=== PATIENT | male | born 1975 | race Caucasian/White ===

== ENCOUNTER 2019-11-04 07:00 | Outpatient (RCR) | payer OTHER, SELFPAY ==
--- NOTE | 2019-09-27 09:01 | PTOPEVAL ---
Addendum entered by Romana Santos, PT 09/27/19 09:30: orders: Dr. Mónica Steele--for diagnosis of chronic R side low back pain, without sciatica Dr. Noé Burgess III- for diagnosis of L and R hip impingement and OA primary care physician: Dr. Earl Rasheed Original Note: PHYSICAL THERAPY EVALUATION AND PLAN OF CARE 09-27-2019 The PT evaluation was completed today and plan of treatment is scheduled for 2x/week for 5 weeks. Plan includes land and aquatic exercises--for the buoyancy effects of the water to ease movement and strengthening. Thank you for referring Reymundo to [facility]. Please review, sign, date and return this plan of care TRICIA. I agree with and certify that the following plan of care is medically necessary. Referring Physician Date Attending Provider: Dr. Earl Rasheed--orders for back pain Dr. Mónica Steele--orders for R and L hip impingement and OA *PT Outpatient Evaluation Start: 09/27/19 07:37 Assessment Status Assessment Status Evaluation Outpatient Past Medical History Neurological History Hx Neurological Disorders No Significant History Cardiovascular History Hx Cardiac Disorders No Significant History Respiratory History Hx Asthma Yes: as child, no issues now Gastrointestinal History Hx Irritable Bowel Yes Hx Other Gastrointestinal Disorders Yes: frequent urination due to nerve impingement Genitourinary History Hx Genitourinary Disorders No Significant History Musculoskeletal History Hx Back Pain Yes: B hip and low back; L sh adhesive capsulitis,R sh pain Hx Other Musculoskeletal Disorders Yes: cervical pain, C 5-6 impingement;B knee pain Hematological History Hx Hematological Disorders No Significant History Endocrine History Hx Endocrine Disorders No Significant History HEENT History Hx HEENT Disorders No Significant History Other History Hx Other Surgeries Yes: inguinal hernia repair/ mesh;appendectomy; Evaluation Information Problem Diagnosis R and L hip impingement and OA , LBP Onset 2015 Subjective Information chronic since 2015- injury, Query Text:As Reported By Patient/ herniated disc L 4-5- partial Family discectomy; pain since 2016, increases at time with activity; previous PT for back- electrical stim helped, exercises did help; not for hips; Diagnostic Tests X-Rays For This Problem Yes: hips;lumbar- nothing impinging too severe-OA Previous Treatments Previous Treatments For This Problem last PT 2018 in [place]; then
--- NOTE | 2019-10-21 08:59 | PCPTNOTE ---
pt called and canceled today's treatment due to being ill.
--- NOTE | 2019-11-04 07:49 | PTOPEVAL ---
PHYSICAL THERAPY DISCHARGE SUMMARY 11-04-2019 Reymundo has received 6 Physical Therapy sessions, from September 27 to today. His treatment included land and aquatic exercises. Compared to the initial evaluation: pain rating is about the same; increase in hip and trunk strength; self assessment functional score increased 4%; reported tolerances with driving, standing, walking and sleeping are the same; increase in B hamstring flexibility; supine hip IR and ER increase his hip pain B, and hip flexion does not increase pain; B UE lifting is 15#. Reymundo has a good understanding of managing his pain with activity modification, positional changes, rest and stretching. He is independent with his home exercises on land and in the water--he plans to obtain a membership to a fitness center with a pool. He agrees to discharge from PT at this time, with continuing to do his home exercises. Thank you for referring Mr. Nayak to [facility]. Please review, sign, date and return this discharge TRICIA. I agree with and certify that the following plan of care is medically necessary. Referring Physician Date Attending Provider: orders per: Dr. Becca Steele for diagnosis of chronic R side low back pain Dr. Noé Burgess III for diagnosis of L and R hip impingement and OA Primary care physician--Dr. Chandrakant Rasheed *PT Outpatient Discharge Document 11/04/19 07:00 RUBEN (Rec: 11/04/19 07:43 RUBEN [email or web address]) Subjective Information Reymundo reports: feels like Query Text:As Reported By Patient/ aquatic exercises help; going Family to get a membership to fitness center with pool; self assessment with Oswestry is 58% limitation; agrees to discharge from PT; Pain Assessment Timing of Pain Assessment Timing of Pain Assessment Assessment Pain Scale Pain Scale Used Numeric (1 - 10) Self Report Pain Assessment Bilateral Back Reported Pain Level 3 Pain Description Sharp Radicular Pain Location low back R into R and L hip joints middle of hip joint ; no pain past hips Pain Frequency Chronic Current Pain Intensity 3 Lowest Pain Intensity 3 Greatest Pain Intensity 8 Pain Level Goal 0 Other Pain Aggravating Factors tolerances:driving 45 min; stand 5-10 min;sleep 6hr at time;walk 20-30min Other Alleviating Interventions taking extra strength tylenol ~ 1-3x/week, no other pain meds; Additional Pain Comments incr pain in/out bed & car- looking to get different car with higher seat; Pain Score Pain Score 3: Self Report Cervical and Lumbar ROM Lumbar ROM Lumbar Comments standing trunk flexion- hands
== END 2019-11-04 08:31 | disposition home or self-care (01) ==
LOC: ANHPT 07:00
PROVIDERS: PCP Family Medicine
DX: M16.0 Bilateral primary osteoarthritis of hip (principal); M25.852 Other specified joint disorders, left hip; M25.851 Other specified joint disorders, right hip
CPT/HCPCS: 97014; 97022; 97110; 97113; 97161; G0283

== ENCOUNTER 2020-05-04 12:01 | Emergency (ER) | payer OTHER, SELFPAY ==
--- NOTE | ~2020-05-04 | XR_ITS ---
EXAMINATION: XR toe 5th RT min 2V DATE: 05/04/2020 12:24 INDICATION: Right fifth toe injury and pain. TECHNIQUE: 3 views of right fifth toe were obtained. COMPARISON: None. FINDINGS: There is an oblique fracture of neck of fifth proximal phalanx. The distal fracture fragmen t demonstrates impaction, 1 mm plantar and lateral displacement, and 18 degrees lateral angulation. J oint spaces are normal. IMPRESSION: 1. Oblique fracture of neck of fifth proximal phalanx. Reviewed, dictated and finalized at location A.
--- NOTE | 2020-05-04 12:04 | ED.GENADULT ---
HPI - General Adult General Chief complaint: Extremity Injury, Lower Stated complaint: right pinky toe injured Time Seen by Provider: 05/04/20 12:14 Source: patient Mode of arrival: ambulatory Limitations: no limitations History of Present Illness HPI narrative: 44-year-old male patient presents to the [facility] with complaints of right pinky toe pain. Patient states that he hit it on a door frame last night before bed. Patient states he has been icing it and taking ibuprofen for the pain but this morning noticed that he started having some bruising and thought that the pinky toe looked a little deformed and wanted to come in and check it out. Patient states he has able to walk on it but does have pain when doing so. Related Data Home Medications Medication Instructions Recorded Confirmed No Home Medications 05/04/20 05/04/20 Allergies Allergy/AdvReac Type Severity Reaction Status Date / Time No Known Allergies Allergy Verified 05/04/20 12:15 Review of Systems Review of Systems: Narrative: CONSTITUTIONAL: Denies fever, chills, or sweats. EYES: Denies visual changes, redness, or discharge. ENT: Denies rhinorrhea, congestion, sore throat, or otalgia. CARDIOVASCULAR: Denies chest pain, palpitations, or edema. RESPIRATORY: Denies cough or dyspnea. GASTROINTESTINAL: Denies abdominal pain, nausea, vomiting, or diarrhea. GENITOURINARY: Denies dysuria or hematuria. SKIN: Denies rash or itching. MUSCULOSKELETAL: Denies back pain, joint pain, or myalgia. Positive right pinky toe pain NEUROLOGIC: Denies headache, numbness, or weakness. PSYCHIATRIC: Denies anxiety or depression. PMFSH Comments At the time of my signature I agree with nursing past medical history, surgical, social, and family history. There is no relevant family history pertinent to the presenting complaint. Exam Narrative: Exam Narrative: GENERAL: Well-appearing, well-nourished, and in no acute distress. HEAD: Normocephalic, atraumatic. EYES: PERRLA and EOMI. ENT: Nares clear, no rhinorrhea or epistaxis. Mucous membranes moist. NECK: Supple. No lymphadenopathy CHEST: Clear to auscultation. No respiratory distress. HEART: Regular rate and rhythm. No murmur heard. Normal peripheral pulses. ABDOMEN: Soft, nontender, nondistended, normal active bowel sounds. EXTREMITIES: Patient able to bear weight and ambulate with pain to right pinky toe. No surface trauma, there is ecchymosis noted over the fourth and fifth metatarsals, no erythema, lesions, ulcers or break in skin integrity. The R foot is without obvious asymmetry or deformity when compared to the L foot. No bony step-off, tender to palpation over the toes, no tenderness midfoot or hindfoot or sole. Normal plantar/dorsiflexion, inversion/eversion. Distal motor and neurovascular status are intact SKIN: Warm, dry, no rash. NEURO: No focal deficits. Alert and oriented x3. Course Reevaluation(s) Reevaluation #1: Reevaluated patient after his x-ray resulted. Discussed with patient that x-ray does show that he has a fracture of his pinky toe. Discussed with patient that we will go ahead and tylor tape the toe, provide him in a postop shoe for comfort and I will refer him to the orthopedic surgeon on-call today. Discussed with patient that he can needs to elevate it, ice it take Tylenol and ibuprofen as needed for pain and follow-up with Ortho as needed. Patient verbalized understanding denies any other questions or concerns at this time. Date: 05/04/20 Time: 12:40 Vital Signs Vital signs: Vital Signs Temperature 36.7 C 05/04/20 12:07 Pulse Rate 82 05/04/20 12:07 Respiratory Rate 18 05/04/20 12:07 Blood Pressure 121/77 05/04/20 12:07 Pulse Oximetry 99 05/04/20 12:07 Temperature 36.7 C 05/04/20 12:07 Pulse Rate 82 05/04/20 12:07 Respiratory Rate 18 05/04/20 12:07 Blood Pressure 121/77 05/04/20 12:07 Pulse Oximetry 99 05/04/20 12:07 Vital signs reviewed. Medical [facility]
[2020-05-04 12:07] VITALS: BP 121/77; PULSE 82; RESP 18; TEMP 36.7; O2SAT 99
== END 2020-05-04 12:50 | disposition home or self-care (01) ==
PROVIDERS: Emergency Provider Nurse Practitioner Family; PCP Family Medicine
DX: S92.511A Displaced fracture of proximal phalanx of right lesser toe(s), initial encounter for closed fracture (principal); W22.09XA Striking against other stationary object, initial encounter; M19.90 Unspecified osteoarthritis, unspecified site
CPT/HCPCS: 73660; 99214; G0463

== ENCOUNTER 2020-05-18 08:03 | Emergency (ER) | payer OTHER, SELFPAY ==
[2020-05-18 08:07] VITALS: BP 123/99; PULSE 88; RESP 16; TEMP 37; O2SAT 99
--- NOTE | 2020-05-18 08:14 | ED.SKABFB ---
HPI - Skin/Abscess/Foreign Bdy General Chief complaint: Skin/Abscess/Foreign Body Stated complaint: rash on left arm Time Seen by Provider: 05/18/20 08:15 Source: patient and RN notes reviewed History of Present Illness HPI narrative: Patient is a 44-year-old male who presents the urgent care with complaints of a rash to the left arm. Patient states that is been there for approximately 2 weeks initially starting as a small pimple. Patient states that he was wrapping it with tape which caused increased irritation. Patient has now been using peroxide spray to the area with Neosporin and wrapping it with Coban. Patient denies of any history of staph. Denies of any fever, chills, nausea, vomiting. No other acute complaints. No acute distress noted. Patient aware of the plan of care. Some parts of this dictation were generated by voice recognition software and may contain typographical and/or grammatical inaccuracies. Related Data Allergies Allergy/AdvReac Type Severity Reaction Status Date / Time No Known Allergies Allergy Verified 05/18/20 08:17 Review of Systems Review of Systems: Narrative: CONSTITUTIONAL: Denies fever, chills, or sweats. EYES: Denies visual changes, redness, or discharge. ENT: Denies rhinorrhea, congestion, sore throat, or otalgia. CARDIOVASCULAR: Denies chest pain, palpitations, or edema. RESPIRATORY: Denies cough or dyspnea. GASTROINTESTINAL: Denies abdominal pain, nausea, vomiting, or diarrhea. GENITOURINARY: Denies dysuria or hematuria. SKIN: Reports of an oozing itchy red rash to the left upper arm MUSCULOSKELETAL: Denies back pain, joint pain, or myalgia. NEUROLOGIC: Denies headache, numbness, or weakness. All other systems reviewed are negative, except as documented in HPI. [facility] Past Medical History Medical History (Updated 05/18/20 @ 08:28 by [employer] [place]) Diarrhea History of pneumonia Surgical History Surgical History (Updated 05/11/20 @ 13:47 by Agueda Cuello, RT(R)) History of back surgery L4-L5 partial discectomy Hx of appendectomy Family History Family History (Updated 05/11/20 @ 13:47 by Agueda Cuello RT(R)) Other Arthritis Diabetes mellitus Social History Social History (Updated 05/11/20 @ 13:48 by Agueda Cuello RT(R)) Smoking status: Never smoker Alcohol intake: current Drinks per week: 2 Comments At the time of my signature, I reviewed and agree with the nursing past medical, surgical, social, and family history. There is no relevant family history pertinent to the patient complaint. Exam Narrative: Exam Narrative: GENERAL: This is a well-nourished, well-developed patient, in no apparent distress. HEAD: normocephalic, atraumatic. EYES: PERRL. Sclera clear/white. Vision is grossly intact. EARS: External ears normal NOSE: External nose normal with no obvious nasal discharge, nares without redness, no rhinorrhea. THROAT: Mucous membranes moist, NECK: Neck supple SKIN: Scattered bruising pustular pruritic, erythemic dermatitis (suspicious for staph) measuring approximately 12 x 12 cm to the left bicep NEURO: awake, alert, and oriented to person, place and time. There were no obvious focal neurologic abnormalities. EXTREMITIES: No clubbing, cyanosis, or edema. Course Vital Signs Vital signs: Vital Signs Temperature 98.6 F 05/18/20 08:07 Pulse Rate 88 05/18/20 08:07 Respiratory Rate 16 05/18/20 08:07 Blood Pressure 123/99 H 05/18/20 08:07 Pulse Oximetry 99 05/18/20 08:07 Temperature 98.6 F 05/18/20 08:07 Pulse Rate 88 05/18/20 08:07 Respiratory Rate 16 05/18/20 08:07 Blood Pressure 123/99 H 05/18/20 08:07 Pulse Oximetry 99 05/18/20 08:07 Reviewed?patient is informed that they may have pre-hypertension or hypertension based on a blood pressure reading in the department. I recommend the patient call the primary care provider listed on their discharge instructions or a physician of their c
== END 2020-05-18 08:32 | disposition home or self-care (01) ==
PROVIDERS: Emergency Provider Nurse Practitioner Family; PCP Family Medicine
DX: L03.114 Cellulitis of left upper limb (principal)
CPT/HCPCS: 99213; G0463

== ENCOUNTER 2021-11-06 08:25 | Emergency (ER) | payer OTHER, SELFPAY ==
--- NOTE | ~2021-11-06 | XR_ITS ---
EXAMINATION: XR chest 2V DATE: 11/06/2021 08:58 INDICATION: Cough. Shortness of breath. TECHNIQUE: Frontal and lateral views of the chest were obtained. COMPARISON: None. FINDINGS: There is mild atelectasis in left mid and lower lung zones. No pleural effusion or pneumoth orax. The heart size is normal. IMPRESSION: 1. Mild atelectasis in left mid and lower lung zones. Reviewed, dictated and finalized at location A. [employer] SURGEON
[2021-11-06 08:37] VITALS: BP 133/81; PULSE 88; RESP 14; TEMP 36.9; O2SAT 99
--- NOTE | 2021-11-06 09:03 | ED.URI ---
HPI - URI/Sore Throat General Chief Complaint: Upper Respiratory Infection Stated Complaint: Cough Time Seen by Provider: 11/06/21 09:03 Source: patient and RN notes reviewed Mode of arrival: ambulatory Limitations: no limitations History of Present Illness HPI Narrative: 46-year-old male presented for complaint of chronic cough for 4 months. Cough is worse at night, elevates HOB on 5 pillows. Endorses sensation of inflamed center of the chest and shortness of breath and wheezing with cough. Has been taking Claritin and using his 's inhaler. He also increases the heat in the room which helps. Hx GERD, started using otc antacid med for about 3 days without relief. Denies chest pain, palpitations, nausea, vomiting, diarrhea, fever/chills/malaise. He states he has an old home and possibly has mold versus black mold. He started in the gym over 1 month ago denies associated increased shortness of breath or cough with exercise. Cough has been worse for about 1 week. Productive of clear sputum. History of pneumonia and bronchitis in childhood asthma. He is not vaccinated for flu or Covid. MD elicited complaint: cough Related Data Allergies Allergy/AdvReac Type Severity Reaction Status Date / Time No Known Allergies Allergy Verified 11/06/21 08:51 Review of Systems Review of Systems: CONSTITUTIONAL: Endorses malaise, chills, sweats, fever EYES: Denies visual changes, redness, or discharge ENT: Reports rhinorrhea, congestion, sinus pain, otalgia, sore throat CARDIOVASCULAR: Denies chest pain, palpitations, edema RESPIRATORY: Reports cough, post nasal drainage. Denies dyspnea GASTROINTESTINAL: Denies abdominal pain, nausea, vomiting, diarrhea SKIN: Denies rash or itching MUSCULOSKELETAL: Endorses myalgia NEUROLOGIC: Denies headache PMFSH Past Medical History Medical History Diarrhea History of pneumonia Surgical History Surgical History History of back surgery L4-L5 partial discectomy Hx of appendectomy Family History Family History Other Arthritis Diabetes mellitus Social History Social History Smoking status: Never smoker Alcohol intake: current Drinks per week: 2 Exam Narrative: GENERAL: well appearing, no acute distress. HEAD: Normocephalic EYES: PERRLA, conjunctivae clear ENT: Mucous membranes moist. TM pearly olivares with dull light reflex bilaterally; no tragal tenderness. Oropharynx normal. NECK: Supple. No lymphadenopathy CHEST: Clear to auscultation, breath sounds equal. No wheezing, rhonchi, rales, or stridor. No respiratory distress, speaks in full sentences. HEART: Regular rate and rhythm. No murmur heard. SKIN: Warm, dry, no rash. NEURO: Alert and oriented x3. PSYCH: Normal mood and affect Course Course Emergency Course: CXR reviewed with pt along with possible etiologies of chronic cough. Patient is aware of diagnosis, understands and agrees to treatment plan. Anticipatory guidance given. Patient agrees to follow-up as directed and is aware of reasons to seek care at the emergency department. Portions of this record may have been created with voice recognition software Level of Care: Express Care Visit Vital Signs Vital signs: Vital Signs Temperature 98.4 F 11/06/21 08:37 Pulse Rate 88 11/06/21 08:37 Respiratory Rate 14 11/06/21 08:37 Blood Pressure 133/81 11/06/21 08:37 Pulse Oximetry 99 11/06/21 08:37 Temperature 98.4 F 11/06/21 08:37 Pulse Rate 88 11/06/21 08:37 Respiratory Rate 14 11/06/21 08:37 Blood Pressure 133/81 11/06/21 08:37 Pulse Oximetry 99 11/06/21 08:37 reviewed MDM - URI/Sore Throat MDM Narrative Medical decision making narrative: Presented with chronic cough, no apparent s/s pneumonia, PE, C
== END 2021-11-06 09:32 | disposition home or self-care (01) ==
PROVIDERS: Emergency Provider Nurse Practitioner Family; PCP Family Medicine
DX: R05.9 Cough, unspecified (principal); K21.9 Gastro-esophageal reflux disease without esophagitis
CPT/HCPCS: 71046; 99213; G0463

== ENCOUNTER 2021-12-01 18:31 | Emergency (ER) | payer OTHER, SELFPAY ==
--- NOTE | ~2021-12-01 | XR_ITS ---
EXAMINATION: XR chest 2V DATE: 12/01/2021 19:11 INDICATION: Cough. Trouble breathing. TECHNIQUE: Frontal and lateral views of the chest were obtained. COMPARISON: Chest 2 views 11/06/2021 FINDINGS: There is mild atelectasis at left lung base. No pleural effusion or pneumothorax. The heart size is normal. IMPRESSION: 1. Mild atelectasis at left lung base. Reviewed, dictated and finalized at location E.
--- NOTE | 2021-12-01 18:33 | ED.URI ---
HPI - URI/Sore Throat General Chief Complaint: Upper Respiratory Infection Stated Complaint: trouble breathing Time Seen by Provider: 12/01/21 18:33 Source: patient, family and RN notes reviewed History of Present Illness HPI Narrative: Patient is a 46-year-old male who presents the urgent care with his spouse with complaints of 5-month history of chronic cough and dyspnea. Patient states that he has been seen at our facility had a chest x-ray, which was negative and placed on steroids, albuterol inhaler and Tessalon Perles. Patient states that he initially did feel better on the steroids but has since not felt any better. Patient denies of any shortness of breath at rest. States that he has these times where at last approximately 3 seconds where he cannot catch his breath . Patient any chest pain or discomfort. Patient states Zyrtec did seem to help but he has not been consistent on taking the medication. No other acute complaints. No acute distress noted. Patient aware of the plan of care. Some parts of this dictation were generated by voice recognition software and may contain typographical and/or grammatical inaccuracies. Related Data Allergies Allergy/AdvReac Type Severity Reaction Status Date / Time No Known Allergies Allergy Verified 12/01/21 18:51 Review of Systems Review of Systems: CONSTITUTIONAL: Denies fever, chills, or sweats. EYES: Denies visual changes, redness, or discharge. ENT: Denies rhinorrhea, congestion, sore throat, or otalgia. CARDIOVASCULAR: Denies chest pain, palpitations, or edema. RESPIRATORY: Reports a persistent dry cough and intermittent dyspnea GASTROINTESTINAL: Denies abdominal pain, nausea, vomiting, or diarrhea. GENITOURINARY: Denies dysuria or hematuria. SKIN: Denies rash or itching. MUSCULOSKELETAL: Denies back pain, joint pain, or myalgia. NEUROLOGIC: Denies headache, numbness, or weakness. All other systems reviewed are negative, except as documented in HPI. [facility] Past Medical History Medical History Diarrhea History of pneumonia Surgical History Surgical History History of back surgery L4-L5 partial discectomy Hx of appendectomy Family History Family History Other Arthritis Diabetes mellitus Social History Social History Smoking status: Never smoker Alcohol intake: current Drinks per week: 2 Comments At the time of my signature, I reviewed and agree with the nursing past medical, surgical, social, and family history. There is no relevant family history pertinent to the patient complaint. Exam Narrative: GENERAL: This is a well-nourished, well-developed patient, in no apparent distress. HEAD: normocephalic, atraumatic. EYES: PERRL. Sclera clear/white. Vision is grossly intact. EARS: External ears normal, auditory canals clear and without drainage, TMs normal without perforation. Hearing grossly intact. NOSE: External nose normal with no obvious nasal discharge, nares without redness, no rhinorrhea. THROAT: Mucous membranes moist, posterior pharynx clear. NECK: Neck supple CARDIOVASCULAR: Regular rate and rhythm without murmurs, gallops, or rubs. RESPIRATORY: Clear to auscultation. Breath sounds equal bilaterally. No wheezes, rales, or rhonchi. No visible signs of distress. Slight mild shortness of breath on exertion SKIN: warm, intact with no suspicious lesions or rash, good texture and turgor. NEURO: awake, alert, and oriented to person, place and time. There were no obvious focal neurologic abnormalities. EXTREMITIES: No clubbing, cyanosis, or edema. Course Course Level of Care: Express Care Visit Vital Signs Vital signs: Vital Signs Temperature 100 F H 12/01/21 18:35 Pulse Rate 108 H 12/01/21 18:35 Respiratory Rate 24
[2021-12-01 18:35] VITALS: BP 151/89; PULSE 108; RESP 24; TEMP 37.7; O2SAT 98
[2021-12-01 18:40] VITALS: TEMP 37.2
== END 2021-12-01 19:45 | disposition home or self-care (01) ==
PROVIDERS: Emergency Provider Nurse Practitioner Family; PCP Family Medicine
DX: J40 Bronchitis, not specified as acute or chronic (principal)
CPT/HCPCS: 71046; 99213; G0463

== ENCOUNTER 2023-03-02 16:35 | Emergency (ER) | payer OTHER, SELFPAY ==
[2023-03-02 16:48] VITALS: BP 140/83; PULSE 73; RESP 16; TEMP 36.6; O2SAT 100
--- NOTE | 2023-03-02 16:58 | ED.SKABFB ---
HPI - Skin/Abscess/Foreign Bdy General Chief complaint: Skin/Abscess/Foreign Body Stated complaint: poss shingles Source: patient and RN notes reviewed History of Present Illness HPI narrative: 47 yo M presents to urgent care with complaints of a possible shingles rash to his left arm. Pt states yesterday he noticed the one pustule to his left upper arm and states he had tingling to that spot. Pt states he has had shingles twice before and he is hoping to catch it before it gets out of control. Pt states he is scheduled to go on a camping trip in 2 weeks and is hoping this is gone by then. Pt denies any fevers, chills, chest pain, SOB, or vomiting. Related Data Home Medications Medication Instructions Recorded Confirmed budesonide-formoterol HFA 80 inh inhalation PRN Wheezing 03/02/23 mcg-4.5 mcg/actuation aerosol inhaler (Symbicort) cetirizine 10 mg tablet 10 mg PO DAILY 03/02/23 03/02/23 Allergies Allergy/AdvReac Type Severity Reaction Status Date / Time No Known Allergies Allergy Verified 03/02/23 16:45 Review of Systems Review of Systems: Pertinent positives and pertinent negatives per HPI. [facility] Past Medical History Medical History Diarrhea History of pneumonia Surgical History Surgical History History of back surgery L4-L5 partial discectomy Hx of appendectomy Family History Family History Other Arthritis Diabetes mellitus Social History Social History Smoking status: Never smoker Alcohol intake: current Drinks per week: 2 Comments At the time of my signature, I reviewed and agree with the nursing past medical, surgical, social, and family history. There is no relevant family history pertinent to the patient complaint. Exam Narrative: GENERAL: This is a well-nourished, well-developed patient, in no apparent distress. HEAD: normocephalic, atraumatic. EYES: Sclera clear/white. Vision is grossly intact. EARS: External ears normal, auditory canals clear and without drainage. Hearing grossly intact. NOSE: External nose normal with no obvious nasal discharge, nares without redness, no rhinorrhea. THROAT: Mucous membranes moist, posterior pharynx clear. NECK: Neck supple, non-tender without lymphadenopathy, masses or thyromegaly. CARDIOVASCULAR: Regular rate RESPIRATORY: No respiratory distress SKIN: 1 small pustule to left bicep area that is erythemic. no drainage or areas of induration. NEURO: awake, alert, and oriented to person, place and time. There were no obvious focal neurologic abnormalities. EXTREMITIES: No clubbing, cyanosis, or edema. No joint tenderness, effusion, or edema noted. Course Course Level of Care: Express Care Visit Vital Signs Vital signs: Vital Signs Temperature 97.8 F 03/02/23 16:48 Pulse Rate 73 03/02/23 16:48 Respiratory Rate 16 03/02/23 16:48 Blood Pressure 140/83 03/02/23 16:48 Pulse Oximetry 100 03/02/23 16:48 Oxygen Delivery Room Air 03/02/23 16:48 Temperature 97.8 F 03/02/23 16:48 Pulse Rate 73 03/02/23 16:48 Respiratory Rate 16 03/02/23 16:48 Blood Pressure 140/83 03/02/23 16:48 Pulse Oximetry 100 03/02/23 16:48 Oxygen Delivery Room Air 03/02/23 16:48 Reviewed MDM - Skin/Abscess/Foreign Bdy MDM Narrative Medical decision making narrative: May apply the triamcinolone ointment, twice a day, as needed, if you develop itching. Monitor the area and if you develop any furthering rash and pain, similiar to your previous shingles outbreaks, you may start the Valacyclovir. Take the Valacyclovir as directed. Follow up with your PCP in 1 week. Pt was prescribed the antiviral medication due to the fact the pt has had previous shingle outbreaks and states this
== END 2023-03-02 17:12 | disposition home or self-care (01) ==
PROVIDERS: Emergency Provider Nurse Practitioner Family; PCP Family Medicine
DX: L08.9 Local infection of the skin and subcutaneous tissue, unspecified (principal)
CPT/HCPCS: 99213; G0463

== ENCOUNTER 2023-11-13 17:36 | Emergency (ER) | payer OTHER, SELFPAY ==
[2023-11-13 17:48] VITALS: BP 141/67; PULSE 85; RESP 16; TEMP 36.6; O2SAT 100
--- NOTE | 2023-11-13 18:26 | ED.URI ---
HPI - URI/Sore Throat General Chief Complaint: Upper Respiratory Infection Stated Complaint: sinus infection Time Seen by Provider: 11/13/23 18:34 Source: patient and RN notes reviewed Mode of arrival: ambulatory Limitations: no limitations History of Present Illness HPI Narrative: 48-year-old male presented for complaint of cough, ear pressure, nasal congestion and sore throat over the past few days. Endorses productive cough. States last year he had similar symptoms and developed a bad cough, and wants to prevent this from worsening. Not taking anything for symptoms. Denies sob, wheezing, n/v/d/fc. MD elicited complaint: cough Related Data Home Medications Medication Instructions Recorded Confirmed budesonide-formoterol HFA 80 inh inhalation PRN Wheezing 03/02/23 mcg-4.5 mcg/actuation aerosol inhaler (Symbicort) cetirizine 10 mg tablet 10 mg PO DAILY 03/02/23 03/02/23 Allergies Allergy/AdvReac Type Severity Reaction Status Date / Time No Known Allergies Allergy Verified 11/13/23 18:15 Review of Systems Review of Systems: CONSTITUTIONAL: denies malaise, chills, sweats, fever EYES: Denies visual changes, redness, or discharge ENT: Reports rhinorrhea, congestion, sinus pain, otalgia, sore throat CARDIOVASCULAR: Denies chest pain, palpitations, edema RESPIRATORY: Reports cough, post nasal drainage. Denies dyspnea GASTROINTESTINAL: Denies abdominal pain, nausea, vomiting, diarrhea SKIN: Denies rash or itching MUSCULOSKELETAL: denies myalgia NEUROLOGIC: Denies headache PMFSH Past Medical History Medical History Diarrhea History of pneumonia Surgical History Surgical History History of back surgery L4-L5 partial discectomy Hx of appendectomy Family History Family History Other Arthritis Diabetes mellitus Social History Social History Smoking status: Never smoker Alcohol intake: current Drinks per week: 2 Exam Narrative: GENERAL: mildly Ill-appearing, nontoxic no acute distress. EYES: PERRLA, conjunctivae clear ENT: Mucous membranes moist. TMs pearly olivares with dull light reflex bilaterally; no tragal tenderness. Oropharynx erythematous without lesions or exudate, no drooling, no hoarseness, no trismus, uvula midline. No tripod positioning, muffled voice, soft palate or pharyngeal wall bulging NECK: Supple. No lymphadenopathy CHEST: Clear to auscultation, breath sounds equal. No wheezing, rhonchi, rales, or stridor. No respiratory distress, speaks in full sentences. HEART: Regular rate and rhythm. No murmur heard. SKIN: Warm, dry, no rash. NEURO: Alert and oriented x3. PSYCH: Normal mood and affect Course Course Emergency Course: Patient is aware of diagnosis, understands and agrees to treatment plan. Anticipatory guidance given. Patient agrees to follow-up as directed and is aware of reasons to seek care at the emergency department. Portions of this record may have been created with voice recognition software Level of Care: Express Care Visit Vital Signs Vital signs: Vital Signs Temperature 97.8 F 11/13/23 17:48 Pulse Rate 85 11/13/23 17:48 Respiratory Rate 16 11/13/23 17:48 Blood Pressure 141/67 H 11/13/23 17:48 Pulse Oximetry 100 11/13/23 17:48 Oxygen Delivery Room Air 11/13/23 17:48 Temperature 97.8 F 11/13/23 17:48 Pulse Rate 85 11/13/23 17:48 Respiratory Rate 16 11/13/23 17:48 Blood Pressure 141/67 H 11/13/23 17:48 Pulse Oximetry 100 11/13/23 17:48 Oxygen Delivery Room Air 11/13/23 17:48 reviewed MDM - URI/Sore Throat MDM Narrative Medical decision making narrative: Discussed physical exam findings. Advised supportive measures and signs/symptoms to go to the ER. Pt is appropriate for
== END 2023-11-13 18:48 | disposition home or self-care (01) ==
PROVIDERS: Emergency Provider Nurse Practitioner Family; PCP Family Medicine
DX: B34.9 Viral infection, unspecified (principal)
CPT/HCPCS: 87081; 87880; 99213; G0463

== ENCOUNTER 2024-04-11 13:05 | Emergency (ER) | payer OTHER, SELFPAY ==
[2024-04-11 13:12] VITALS: BP 112/69; PULSE 69; RESP 20; TEMP 36.8; O2SAT 99
--- NOTE | 2024-04-11 14:02 | ED.URI ---
HPI - URI/Sore Throat General Chief Complaint: Upper Respiratory Infection Stated Complaint: Cough/Chest Congestion/Sore Throat Time Seen by Provider: 04/11/24 14:03 Source: patient, RN notes reviewed and old records reviewed Mode of arrival: ambulatory Limitations: no limitations History of Present Illness HPI Narrative: 40-year-old male to Express Care for complaint of bilateral ear discomfort, cough, congestion, sinus pressure and sore throat for 3 days. Patient has attempted to treat at home with ear drops, Tylenol, ibuprofen, DayQuil, NyQuil and singular without relief. Patient reports that symptoms are worsening and now affecting his ability to sleep. Patient states that right ear pain is now radiating into right jaw it is currently rating it 5/10. Patient denies difficulty swallowing, shortness of breath, chest pain, GI complaints, allergies. Respirations even and nonlabored. Patient speaking in complete sentences without difficulty. Patient in no acute distress. Related Data Home Medications Medication Instructions Recorded Confirmed budesonide-formoterol HFA 80 2 inh inhalation BID 03/02/23 04/11/24 mcg-4.5 mcg/actuation aerosol inhaler (Symbicort) cetirizine 10 mg tablet 10 mg PO DAILY 03/02/23 04/11/24 Allergies Allergy/AdvReac Type Severity Reaction Status Date / Time No Known Allergies Allergy Verified 04/11/24 13:37 Review of Systems Review of Systems: All systems reviewed & are unremarkable except as noted in HPI and below Constitutional: Constitutional: Reports as per HPI, Denies body ache(s), Denies chills, Reports difficulty sleeping, Reports fatigue, Denies fever(s) and Denies headache(s) Eyes: Eyes: Reports no additional eye complaints ENT: Reports as per HPI, Reports otalgia ( Bilateral) and Reports sinus pressure Cardiovascular: Cardiovascular: Reports no additional cardiovascular complaints, Denies chest pain and Denies dyspnea Respiratory: Respiratory: Reports no additional respiratory complaints, Reports cough and Denies dyspnea Musculoskeletal: Musculoskeletal: Reports no additional musculoskeletal complaints Neurologic: Reports system reviewed and no additional complaints, except as documented Psychiatric: Psychiatric: Reports no additional psychiatric complaints PMF Past Medical History Medical History Diarrhea History of pneumonia Surgical History Surgical History History of back surgery L4-L5 partial discectomy Hx of appendectomy Family History Family History Other Arthritis Diabetes mellitus Social History Social History Smoking status: Never smoker Alcohol intake: current Drinks per week: 2 Comments At the time of my signature, I reviewed and agree with the nursing past medical, surgical, social, and family history. There is no relevant family history pertinent to the patient complaint. Exam Const: General: cooperative, no acute distress, alert, tired appearing, uncomfortable and well nourished Nutritional Appearance: well nourished Orientation/consciousness: patient oriented x3 Limitations: no limitations HENMT: Head: normal to inspection Ears: Abnormal EAC present EAC tenderness bilateral and TM abnormal bulging on the right, dull bilateral, erythematous bilateral, with fluid behind the TM bilateral and with loss of landmarks on the right Face/Nose/Sinus: Normal external nose present, Normal nares present, normal facial exam, No erythema and No edema Face and sinus: normal facial exam, no erythema and no edema Mouth: Yes Normal oral and palatal mucosa present Throat: posterior oropharynx abnormal erythema and postnasal drainage Eyes: General: appearance normal, both eyes and all related structures
== END 2024-04-11 14:03 | disposition home or self-care (01) ==
PROVIDERS: Emergency Provider Nurse Practitioner Family; PCP Family Medicine
DX: H66.93 Otitis media, unspecified, bilateral (principal)
CPT/HCPCS: 99213; G0463

== ENCOUNTER 2024-04-21 09:27 | Emergency (ER) | payer OTHER, SELFPAY ==
--- NOTE | 2024-04-21 10:03 | ED.URI ---
HPI - URI/Sore Throat General Stated Complaint: Right Ear Pain Time Seen by Provider: 04/21/24 10:03 Source: patient, RN notes reviewed and old records reviewed Mode of arrival: ambulatory Limitations: no limitations History of Present Illness HPI Narrative: 48 year old male who presents to [facility] care with complaints of continued pain in right ear with some radiation of pain to jaw region since last week. Patient was started on antibiotic and prednisone for double ear infection on April 11. Patient reports no fevers is taking daily inhaler antihistamine and is using Singulair also. Patient reports that he did have a root canal about a month ago on right side of mouth and does have upcoming dental appointment, denies any dental pain. MD elicited complaint: other (right ear pain) Pertinent past history: other (ear infection 04/11/2024) Onset (ago): day(s) (since last week) Pain scale (0-10): 4 Able to tolerate fluids by mouth: Yes Exacerbating factors: other (eating and if opens mouth) Treatments prior to arrival: antibiotics and other (prednisone, inhaler Zyrtec) Related Data Home Medications Medication Instructions Recorded Confirmed budesonide-formoterol HFA 80 2 inh inhalation BID 03/02/23 04/11/24 mcg-4.5 mcg/actuation aerosol inhaler (Symbicort) cetirizine 10 mg tablet 10 mg PO DAILY 03/02/23 04/11/24 Allergies Allergy/AdvReac Type Severity Reaction Status Date / Time No Known Allergies Allergy Verified 04/11/24 13:37 Review of Systems Review of Systems: CONSTITUTIONAL: Denies malaise, chills, sweats, or fever. EYES: Denies visual changes, redness, or discharge. ENT: Reports rhinorrhea, congestion, no sinus pain, right otalgia and denies sore throat. CARDIOVASCULAR: Denies chest pain, palpitations, or edema. RESPIRATORY: Reports no cough.? Denies dyspnea. GASTROINTESTINAL: Denies abdominal pain, nausea, vomiting, diarrhea SKIN: Denies rash or itching. MUSCULOSKELETAL: Denies myalgia. NEUROLOGIC: Denies headache. All systems reviewed & are unremarkable except as noted in HPI and below PMFSH Past Medical History Medical History Diarrhea History of pneumonia Surgical History Surgical History History of back surgery L4-L5 partial discectomy Hx of appendectomy Family History Family History Other Arthritis Diabetes mellitus Social History Social History Smoking status: Never smoker Alcohol intake: current Drinks per week: 2 Comments At time of signature, agree with nursing past medical, surgical, social and family history. There is no relevant family history pertinent to the presenting complaint Exam Narrative: GENERAL: Well-appearing, well-nourished, and in no acute distress. HEAD: Normocephalic EYES: PERRLA, conjunctivae clear ENT: Nares clear, turbinates edematous and erythematous, clear discharge. Mucous membranes moist. TM pearly olivares with dull light reflex bilaterally; no tragal tenderness. Oropharynx erythematous without lesions. Tonsils not enlarged and without exudate, no drooling, no hoarseness, no trismus, uvula midline.no gum redness or any dental pain voiced. NECK: Supple. No lymphadenopathy CHEST: Clear to auscultation, breath sounds equal. No wheezing, rhonchi, rales, or stridor. No respiratory distress, speaks in full sentences.no cough noted SAO2 98% on room air HEART: Regular rate and rhythm. No murmur heard. SKIN: Warm, dry, no rash. NEURO: Alert and oriented x3. PSYCH: Normal mood and affect Course Course Emergency Course: Patient is aware of diagnosis, understands and agrees to treatment plan.? Anticipatory guidance given.? Patient agrees to follow-up as directed and is aware of reasons to seek care
== END 2024-04-21 10:14 | disposition home or self-care (01) ==
PROVIDERS: Emergency Provider Registered Nurse; PCP Family Medicine
DX: H69.91 Unspecified Eustachian tube disorder, right ear (principal)
CPT/HCPCS: 99213; G0463

== ENCOUNTER 2024-08-08 12:58 | Emergency (ER) | payer OTHER, SELFPAY ==
--- NOTE | ~2024-08-08 | XR_ITS ---
EXAMINATION: XR chest 2V DATE: 08/08/2024 13:50 INDICATION: Pneumonia 2 weeks prior presenting with continued cough and shortness of breath TECHNIQUE: frontal and lateral views of the chest were obtained. COMPARISON: Chest radiograph dated 12/01/2021 FINDINGS: The lungs remain clear with no focal airspace opacities, pulmonary edema, pleural effusion or pneumot horax. The cardiomediastinal silhouette is normal. Mild thoracic spondylosis. IMPRESSION: 1. No acute cardiopulmonary disease. Reviewed, dictated and finalized at location [facility]
[2024-08-08 13:04] VITALS: BP 134/82; PULSE 88; RESP 20; TEMP 36.3; O2SAT 99
--- NOTE | 2024-08-08 13:27 | ED.URI ---
HPI - URI/Sore Throat General Chief Complaint: Upper Respiratory Infection Stated Complaint: cough/tight chest/sob Time Seen by Provider: 08/08/24 13:27 Source: patient Mode of arrival: ambulatory Limitations: no limitations History of Present Illness HPI Narrative: 48 yo M presents with c/o cough since thingsgiving, approx. 2 wks. Was seen in ER and dx with pneumonia. completed zpak and still taking augmentin. Reports cough worse. OTC cough medications not helping. States voice hoarse. No CP or SOB. All systems reviewed and negative except as noted above. Related Data Home Medications ?Medication ?Instructions ?Recorded ?Confirmed ?Last Taken ?Type budesonide-formoterol HFA 80 2 inh inhalation BID 03/02/23 04/11/24 Unknown History mcg-4.5 mcg/actuation aerosol inhaler (Symbicort) amoxicillin 875 mg-potassium tablet 08/08/24 Unknown History clavulanate 125 mg tablet benzonatate 100 mg capsule mg PO 08/08/24 Unknown History codeine 10 mg-guaifenesin 100 mg/5 ml 08/08/24 Unknown History mL oral liquid Allergies Allergy/AdvReac Type Severity Reaction Status Date / Time No Known Allergies Allergy Verified 04/11/24 13:37 Review of Systems Review of Systems: CONSTITUTIONAL: Denies fever, chills, or sweats. Reports fatigue. EYES: Denies visual changes, redness, or discharge. ENT: Denies rhinorrhea, congestion, sore throat, or otalgia. CARDIOVASCULAR: Denies chest pain, palpitations, or edema. RESPIRATORY: Reports cough. Denies dyspnea. GASTROINTESTINAL: Denies abdominal pain, nausea, vomiting, or diarrhea. GENITOURINARY: Denies dysuria or hematuria. SKIN: Denies rash or itching. MUSCULOSKELETAL: Denies back pain, joint pain, or myalgia. NEUROLOGIC: Denies headache, numbness, or weakness. PSYCHIATRIC: Denies anxiety or depression. All other systems reviewed are negative, except as documented in HPI. [facility] Past Medical History Medical History Diarrhea History of pneumonia Surgical History Surgical History History of back surgery L4-L5 partial discectomy Hx of appendectomy Family History Family History Other Arthritis Diabetes mellitus Social History Social History Smoking status: Never smoker Alcohol intake: current Drinks per week: 2 Comments At time of signature, agree with nursing past medical, surgical, social and family history. There is no relevant family history pertinent to the presenting complaint. Exam Narrative: GENERAL: This is a well-nourished, well-developed patient, in no apparent distress. HEAD: normocephalic, atraumatic. EYES: PERRL. Sclera clear/white. Vision is grossly intact. EARS: External ears normal, auditory canals clear and without drainage, TMs normal without perforation. Hearing grossly intact. NOSE: External nose normal with no obvious nasal discharge, nares without redness, no rhinorrhea. THROAT: Mucous membranes moist, posterior pharynx clear. NECK: Neck supple, non-tender without lymphadenopathy, masses or thyromegaly. CARDIOVASCULAR: Regular rate and rhythm without murmurs, gallops, or rubs. RESPIRATORY: Decreased to bilateral lower lung schmitz otherwise clear. Breath sounds equal bilaterally. No wheezes, rales, or rhonchi. SKIN: warm, Dry, intact with no suspicious lesions or rash, good texture and turgor. NEURO: awake, alert, and oriented to person, place and time. There were no obvious focal neurologic abnormalities. EXTREMITIES: No joint tenderness, effusion, or edema noted. Course Course Level of Care: Express Care Visit Vital Signs Vital signs: Vital Signs Temperature 36.3 C L 08/08/24 13:04 Pulse Rate 88 08/08/24 13:04 Respiratory Rate 20 08/08/24 13:04 Blood Pressure 134/82 08/08/24 13:04 Pulse Oximetry 99 08/08/24 13:04 Oxygen Delivery Room Air 08/08/24 13:04 Temperature 36.3 C L 08/08/24 13:04 Pulse Rate 88 08/08/24 13:04 Respiratory Rate 20 08/08/24 13:04 Blood Pressure 134/82 08/08/24 13:04 Pulse Oximetry 99 08/08/24 13:04 Oxygen Delivery Room Air 08/08/24 13:04 Reviewed MDM - URI/Sore Throat MDM Narrative Medical decision making narrative: Chest x-ray negative for pneumonia. Patient is still complaining Augmentin course. Recommend he complete this antibiotic. Will prescribe prednisone, benzonatate for bronchitis. Patient already using an albuterol inhaler. Recommend follow-up with primary care physician. Patient is aware of diagnosis, understands and agrees to treatment plan. Anticipatory guidance given. Patient agrees to follow-up as directed and is aware of reasons to seek care at the emergency department. Portions of this record may have been created with voice recognition software Differential Diagnosis Differential diagnosis: Likely upper respiratory infection, viral infection and bronchitis Imaging Data My impression: agree with radiologist Radiologist's impression: EXAMINATION: XR chest 2V DATE: 08/08/2024 13:50 INDICATION: Pneumonia 2 weeks prior presenting with continued cough and shortness of breath TECHNIQUE: frontal and lateral views of the chest were obtained. COMPARISON: Chest radiograph dated 12/01/2021 FINDINGS: The lungs remain clear with no focal airspace opacities, pulmonary edema, pleural effusion or pneumothorax. The cardiomediastinal silhouette is normal. Mild thoracic spondylosis. IMPRESSION: 1. No acute cardiopulmonary disease. Discharge Plan Discharge Clinical Impression: Acute bronchitis Patient Disposition: Home, Self-Care Condition: Stable Instructions: Acute Bronchitis (ED) Additional Instructions: your chest x-ray was negative for pneumonia today. Take medications as prescribed. Continue using inhalers as prescribed. Drink at least 64 oz water a day. Follow-up with your primary care physician if cough is not improving. Patient Language: Thai Prescriptions: New benzonatate 200 mg capsule 200 mg PO TID PRN (Reason: cough) Qty: 20 0RF prednisone 20 mg tablet 40 mg PO DAILY 5 Days Qty: 10 0RF No Action albuterol sulfate 2.5 mg /3 mL (0.083 %) solution for nebulization 2.5 mg inhalation Q6H Qty: 15 0RF albuterol sulfate 90 mcg/actuation HFA aerosol inhaler 1 inh inhalation QID PRN (Reason: shortness of breath or wheezing) Qty: 8.5 0RF budesonide-formoterol [Symbicort] 80-4.5 mcg/actuation HFA aerosol inhaler 2 inh INHALATION BID benzonatate 100 mg capsule PO codeine-guaifenesin 10-100 mg/5 mL liquid amoxicillin-pot clavulanate 875-125 mg tablet Follow-up/Referrals: Wili,Earl Contreras MD [Primary Care Provider] - Time of Disposition: 14:17
== END 2024-08-08 14:22 | disposition home or self-care (01) ==
PROVIDERS: Emergency Provider Nurse Practitioner Family; PCP Family Medicine
DX: J20.9 Acute bronchitis, unspecified (principal)
CPT/HCPCS: 71046; 99213; G0463